=== PATIENT | female | born 1965 | race Caucasian/White ===

== ENCOUNTER 2023-02-23 08:13 | Day surgery (SDC) | payer BC ==
[2023-02-23 10:59] VITALS: BMI 37.8
[2023-02-23] MEDS ORDERED: PROPOFOL 20 ML ONE ×2 (11:13→11:33)
[2023-02-23] MEDS ORDERED: Midazolam HCl 2 mg/2 ml Vial ONE (11:28)
== END 2023-02-23 12:35 | disposition home or self-care (01) ==
LOC: CSHSDC 08:13
PROVIDERS: ATTEND Internal Medicine Gastroenterology
PROC: 0DJD8ZZ Inspection of Lower Intestinal Tract, Via Natural or Artificial Opening Endoscopic (ICD-10-PCS; principal; 2023-02-23)
DX: Z12.11 Encounter for screening for malignant neoplasm of colon (principal); K57.30 Diverticulosis of large intestine without perforation or abscess without bleeding; K64.9 Unspecified hemorrhoids; M54.9 Dorsalgia, unspecified; G89.29 Other chronic pain
CPT/HCPCS: J2250; J2704

== ENCOUNTER 2023-09-06 13:29 | Outpatient (CLI) | payer BC | END 2023-09-06 13:30 | disposition home or self-care (01) | LOC: CSHMAMMO 13:29 | PROVIDERS: ATTEND Physician Assistant | DX: Z12.31 Encounter for screening mammogram for malignant neoplasm of breast (principal) | CPT/HCPCS: 77063; 77067 ==